=== PATIENT | male | born 1940 | race Caucasian/White ===

== ENCOUNTER 2019-04-29 09:48 | Day surgery (SDC) | payer MEDICARE ==
[~2019-04-29] VITALS: Ht 180.3 cm; Wt 76.7 kg
[2019-04-29 10:30] VITALS: BP 148/90; PULSE 68; TEMP 97.8
[2019-04-29] MEDS ORDERED: ZESTRIL 20MG TA20 MG PO (10:43)
[2019-04-29] MEDS ORDERED: DUTOPROL 12.5 M1 TE1 PO (10:46)
[2019-04-29 11:50] VITALS: BP 131/75; PULSE 68; TEMP 97.2
--- NOTE | 2019-04-29 11:50 | NUR ---
TO BAY 4 PER OWN WILL STEADY GAIT. ALERT ORIENTED X3,TALKING WITH STAFF AND SON. AMBULATED TO RECLINER WITH ASSIST AND TOLERATED WELL. DR CONNELL TALKED WITH SON PRIOR TO PATIENT RETURNING TO .
[2019-04-29 12:05] VITALS: BP 124/88; PULSE 80
--- NOTE | 2019-04-29 12:05 | NUR ---
RECEIVED COFFEE AND TOLERATED WELL.
--- NOTE | 2019-04-29 12:25 | NUR ---
RECEIVED COFFEE AND DRANK 100% RECEIVED DISCHARGE INSTRUCTIONS AND VERBALIZED UNDERSTANDING. DISCONTINUED IV AND INT- CATHETER INTACT
--- NOTE | 2019-04-29 12:35 | NUR ---
DISCHARGED PER WC BY NURSING STAFF TO PRIVATE CAR IN CARE OF SONROBERT.
== END 2019-04-29 12:54 | disposition home or self-care (01) ==
LOC: SDCO 09:48
DX: Z12.11 Encounter for screening for malignant neoplasm of colon (principal); I10 Essential (primary) hypertension; A69.20 Lyme disease, unspecified; Z86.010 Personal history of colon polyps; Z90.89 Acquired absence of other organs; Z87.891 Personal history of nicotine dependence; Z85.118 Personal history of other malignant neoplasm of bronchus and lung
CPT/HCPCS: J2704; J7030

== ENCOUNTER 2020-02-22 11:33 | Inpatient (IN) | payer MEDICARE ==
[~2020-02-22] VITALS: Ht 177.8 cm; Wt 78.9 kg
[2020-02-22] VITALS (330 sets, daily range): BP systolic 95–123; BP diastolic 52–70; PULSE 42–84; TEMP 98.7–100.3; O2SAT 78–100
[~2020-02-22 11:33] MED LIST: DUTOPROL 12.5 M1 TE1 PO; ZESTRIL 20MG TA20 MG PO
[2020-02-22] MEDS ORDERED: LIPITOR 40MG TA40 MG PO (12:03)
[2020-02-22] MEDS ORDERED: TOPROL XL 50MG50 MG PO (12:04)
[2020-02-22 12:30] LABS: BASO % 0.2 % (0.0-2.0); EOS # 0.1 (0.0-0.7); EOS % 0.9 % (0-4.0); GRAN # 9.9 (1.4-6.5); GRAN % 73.9 % (42.2-75.2); HEMATOCRIT 41.4 % (42.0-52.0); LYMPH # 1.9 (1.2-3.4); LYMPH % 13.7 % (20.0-51.0); MEAN CELL VOLUME 93 fl (80.0-100.0); MEAN CORPUSCULAR HEMOGLOBIN 31 pg (27.0-31.0); MEAN CORPUSCULAR HGB CONC 34 g/dl (33.0-37.0); MONO # 1.4 (0.1-0.6); MONO % 10.7 % (1.7-9.3); PLATELET COUNT 198 K/mm3 (130-400); RED BLOOD COUNT 4.46 M/mm3 (4.20-5.60); REDCELL DISTRIBUTION WIDTH-CV 12.6 % (11.5-14.5)
[2020-02-22 12:34] LABS: PROTHROMBIN TIME 10.9 SECONDS (9.7-12.8)
[2020-02-22 12:36] LABS: PARTIAL THROMBOPLASTIN TIME 27.7 SECONDS (26.0-37.0)
[2020-02-22 12:39] LABS: ALBUMIN 4.4 gm/dL (3.5-5.0); BILIRUBIN,TOTAL 0.8 mg/dL (0.0-1.0); CALCIUM 9.3 mg/dL (8.4-10.2); CREATININE, serum 1.41 (0.66-1.25); MAGNESIUM 2.4 mg/dL (1.6-2.3); POTASSIUM 4.9 mmol/L (3.4-5.0); TOTAL PROTEIN 7.3 gm/dL (6.4-8.2)
[2020-02-22 13:02] LABS: TROPONIN-I 0.23 ng/mL (0.000-0.035)
[2020-02-23] VITALS (762 sets, daily range): BP systolic 105–147; BP diastolic 50–90; PULSE 37–79; TEMP 97.8–98.3; O2SAT 59–99
[2020-02-23 05:54] LABS: HEMATOCRIT 40.5 % (42.0-52.0); HEMOGLOBIN 13.5 g/dl (13.5-18.0); MEAN CELL VOLUME 94 fl (80.0-100.0); MEAN CORPUSCULAR HEMOGLOBIN 32 pg (27.0-31.0); MEAN CORPUSCULAR HGB CONC 33 g/dl (33.0-37.0); MEAN PLATELET VOLUME 10.9 fl (7.4-10.4); RED BLOOD COUNT 4.29 M/mm3 (4.20-5.60)
[2020-02-23 05:58] LABS: PLATELET COUNT 145 K/mm3 (130-400)
[2020-02-23 06:14] LABS: BAND 2 % (0-10); LYMPHOCYTE 19 % (20.0-51.0); NEUTROPHILS 68 % (42.0-75.2); PLATELET ESTIMATE NORMAL (NORMAL)
[2020-02-23 07:10] LABS: ALBUMIN 3.7 gm/dL (3.5-5.0); BILIRUBIN,TOTAL 0.9 mg/dL (0.0-1.0); CHOLESTEROL RISK RATIO 5.1; CREATININE, serum 1.34 (0.66-1.25); POTASSIUM 4.6 mmol/L (3.4-5.0); TOTAL PROTEIN 6.3 gm/dL (6.4-8.2)
[2020-02-24] VITALS (749 sets, daily range): BP systolic 113–145; BP diastolic 7–90; PULSE 46–64; TEMP 98–98.4; O2SAT 68–100
[2020-02-24 05:59] LABS: CREATININE, serum 1.18 (0.66-1.25); POTASSIUM 4.1 mmol/L (3.4-5.0)
[2020-02-24 07:00] LABS: HEMOGLOBIN 12.6 g/dl (13.5-18.0); MEAN CELL VOLUME 90 fl (80.0-100.0); MEAN CORPUSCULAR HEMOGLOBIN 32 pg (27.0-31.0); MEAN CORPUSCULAR HGB CONC 35 g/dl (33.0-37.0); PLATELET COUNT 111 K/mm3 (130-400); REDCELL DISTRIBUTION WIDTH-CV 12.7 % (11.5-14.5)
[2020-02-24 07:53] LABS: HEMATOCRIT 35.9 % (42.0-52.0)
[2020-02-24 07:57] LABS: BAND 4 % (0-10); LYMPHOCYTE 9 % (20.0-51.0); NEUTROPHILS 70 % (42.0-75.2)
[2020-02-24 08:00] LABS: PLATELET ESTIMATE DECREASED (NORMAL)
[2020-02-25] VITALS (1213 sets, daily range): BP systolic 111–144; BP diastolic 49–84; PULSE 48–70; TEMP 97.8–99.4; O2SAT 78–100
[2020-02-25 04:52] LABS: BASO % 0.2 % (0.0-2.0); EOS % 0.2 % (0-4.0); GRAN # 9.9 (1.4-6.5); GRAN % 81.2 % (42.2-75.2); HEMOGLOBIN 11.4 g/dl (13.5-18.0); LYMPH # 0.9 (1.2-3.4); MEAN CELL VOLUME 91 fl (80.0-100.0); MEAN CORPUSCULAR HEMOGLOBIN 31 pg (27.0-31.0); MEAN CORPUSCULAR HGB CONC 34 g/dl (33.0-37.0); MEAN PLATELET VOLUME 11.3 fl (7.4-10.4); MONO # 1.3 (0.1-0.6); MONO % 10.8 % (1.7-9.3); PLATELET COUNT 136 K/mm3 (130-400); RED BLOOD COUNT 3.67 M/mm3 (4.20-5.60); REDCELL DISTRIBUTION WIDTH-CV 12.8 % (11.5-14.5)
[2020-02-25 04:57] LABS: HEMATOCRIT 33.3 % (42.0-52.0)
[2020-02-25 05:02] LABS: CREATININE, serum 1.14 (0.66-1.25); MAGNESIUM 2.3 mg/dL (1.6-2.3); POTASSIUM 3.6 mmol/L (3.4-5.0)
[2020-02-26] VITALS (817 sets, daily range): BP systolic 118–140; BP diastolic 51–90; PULSE 48–62; TEMP 98.1–99.4; O2SAT 70–100
[2020-02-26 05:45] LABS: BASO % 0.2 % (0.0-2.0); EOS # 0.1 (0.0-0.7); EOS % 1.3 % (0-4.0); GRAN # 7.7 (1.4-6.5); GRAN % 78.8 % (42.2-75.2); HEMOGLOBIN 11.9 g/dl (13.5-18.0); LYMPH # 0.9 (1.2-3.4); LYMPH % 9.5 % (20.0-51.0); MEAN CELL VOLUME 91 fl (80.0-100.0); MEAN CORPUSCULAR HEMOGLOBIN 31 pg (27.0-31.0); MEAN CORPUSCULAR HGB CONC 35 g/dl (33.0-37.0); MEAN PLATELET VOLUME 10.8 fl (7.4-10.4); MONO # 0.9 (0.1-0.6); MONO % 9.6 % (1.7-9.3); PLATELET COUNT 153 K/mm3 (130-400); REDCELL DISTRIBUTION WIDTH-CV 12.8 % (11.5-14.5)
[2020-02-26 05:58] LABS: CALCIUM 7.9 mg/dL (8.4-10.2); CREATININE, serum 1.1 (0.66-1.25); POTASSIUM 3.9 mmol/L (3.4-5.0)
[2020-02-26 05:59] LABS: HEMATOCRIT 34.5 % (42.0-52.0)
[2020-02-27] VITALS (1068 sets, daily range): BP systolic 110–147; BP diastolic 41–86; PULSE 40–98; TEMP 98–98.5; O2SAT 74–98
[2020-02-27 05:09] LABS: BASO % 0.3 % (0.0-2.0); EOS # 0.2 (0.0-0.7); EOS % 2.1 % (0-4.0); GRAN # 7.5 (1.4-6.5); GRAN % 79.4 % (42.2-75.2); HEMOGLOBIN 11.5 g/dl (13.5-18.0); LYMPH # 0.8 (1.2-3.4); LYMPH % 8.2 % (20.0-51.0); MEAN CELL VOLUME 91 fl (80.0-100.0); MEAN CORPUSCULAR HEMOGLOBIN 31 pg (27.0-31.0); MEAN CORPUSCULAR HGB CONC 34 g/dl (33.0-37.0); MEAN PLATELET VOLUME 10.2 fl (7.4-10.4); MONO # 0.9 (0.1-0.6); MONO % 9.6 % (1.7-9.3); PLATELET COUNT 180 K/mm3 (130-400); RED BLOOD COUNT 3.71 M/mm3 (4.20-5.60); REDCELL DISTRIBUTION WIDTH-CV 12.4 % (11.5-14.5)
[2020-02-27 05:11] LABS: HEMATOCRIT 33.6 % (42.0-52.0)
[2020-02-27 05:19] LABS: CALCIUM 7.9 mg/dL (8.4-10.2); CREATININE, serum 1.06 (0.66-1.25); POTASSIUM 3.4 mmol/L (3.4-5.0)
[2020-02-27 18:39] LABS: HEMOGLOBIN 12.1 g/dl (13.5-18.0); MEAN CELL VOLUME 91 fl (80.0-100.0); MEAN CORPUSCULAR HEMOGLOBIN 31 pg (27.0-31.0); MEAN CORPUSCULAR HGB CONC 34 g/dl (33.0-37.0); MEAN PLATELET VOLUME 10.5 fl (7.4-10.4); PLATELET COUNT 213 K/mm3 (130-400); RED BLOOD COUNT 3.96 M/mm3 (4.20-5.60); REDCELL DISTRIBUTION WIDTH-CV 12.4 % (11.5-14.5)
[2020-02-27 18:42] LABS: HEMATOCRIT 36.1 % (42.0-52.0)
[2020-02-27 18:49] LABS: INR 1.1 (0.8-3.0); PROTHROMBIN TIME 12.6 SECONDS (9.7-12.8)
[2020-02-27 18:51] LABS: PARTIAL THROMBOPLASTIN TIME 27.5 SECONDS (26.0-37.0)
[2020-02-27 19:11] LABS: CALCIUM 8.5 mg/dL (8.4-10.2); CREATININE, serum 0.96 (0.66-1.25)
[2020-02-28] VITALS (953 sets, daily range): BP systolic 95–146; BP diastolic 40–100; PULSE 38–63; TEMP 97.6–98.4; O2SAT 76–100
[2020-02-28 05:26] LABS: BASO % 0.2 % (0.0-2.0); EOS # 0.2 (0.0-0.7); EOS % 2.6 % (0-4.0); GRAN % 76.1 % (42.2-75.2); HEMOGLOBIN 11.2 g/dl (13.5-18.0); LYMPH # 0.9 (1.2-3.4); LYMPH % 9.6 % (20.0-51.0); MEAN CELL VOLUME 93 fl (80.0-100.0); MEAN CORPUSCULAR HEMOGLOBIN 32 pg (27.0-31.0); MEAN CORPUSCULAR HGB CONC 34 g/dl (33.0-37.0); MEAN PLATELET VOLUME 10.5 fl (7.4-10.4); PLATELET COUNT 196 K/mm3 (130-400); RED BLOOD COUNT 3.52 M/mm3 (4.20-5.60); REDCELL DISTRIBUTION WIDTH-CV 12.5 % (11.5-14.5)
[2020-02-28 05:28] LABS: HEMATOCRIT 32.6 % (42.0-52.0)
[2020-02-28 06:22] LABS: CALCIUM 8.2 mg/dL (8.4-10.2); CREATININE, serum 1.01 (0.66-1.25); POTASSIUM 4.1 mmol/L (3.4-5.0)
[2020-02-29] VITALS (72 sets, daily range): BP systolic 110–146; BP diastolic 38–80; PULSE 52–78; TEMP 97.8–98.6; O2SAT 78–98
[2020-02-29 11:29] LABS: BASO % 0.4 % (0.0-2.0); EOS # 0.2 (0.0-0.7); EOS % 1.9 % (0-4.0); GRAN # 6.1 (1.4-6.5); GRAN % 77.4 % (42.2-75.2); HEMOGLOBIN 11.3 g/dl (13.5-18.0); INR 1.2 (0.8-3.0); LYMPH # 0.7 (1.2-3.4); LYMPH % 9.1 % (20.0-51.0); MEAN CELL VOLUME 92 fl (80.0-100.0); MEAN CORPUSCULAR HEMOGLOBIN 31 pg (27.0-31.0); MEAN CORPUSCULAR HGB CONC 33 g/dl (33.0-37.0); MEAN PLATELET VOLUME 10.2 fl (7.4-10.4); MONO # 0.8 (0.1-0.6); MONO % 10.6 % (1.7-9.3); PLATELET COUNT 256 K/mm3 (130-400); PROTHROMBIN TIME 13.3 SECONDS (9.7-12.8); RED BLOOD COUNT 3.68 M/mm3 (4.20-5.60); REDCELL DISTRIBUTION WIDTH-CV 12.3 % (11.5-14.5)
[2020-02-29 11:30] LABS: HEMATOCRIT 33.8 % (42.0-52.0)
[2020-02-29 11:34] LABS: CALCIUM 8.3 mg/dL (8.4-10.2); CREATININE, serum 0.97 (0.66-1.25); POTASSIUM 4.3 mmol/L (3.4-5.0)
[2020-02-29] MEDS ORDERED: BRILINTA90 MG PO (11:46)
[2020-02-29] MEDS ORDERED: PROAIR HFA0.09 MG/AC IH (11:46)
[2020-02-29] MEDS ORDERED: NITROSTAT0.4 MG/TAB SL (11:47)
[2020-02-29] MEDS ORDERED: TYLENOL 325MG325 MG PO (11:47)
[2020-02-29] MEDS ORDERED: ASPIRIN 81M81 MG/TA2 PO (11:47)
[2020-02-29] MEDS ORDERED: ELIQUIS 5MG PO (11:49)
[2020-02-29] MEDS ORDERED: ZITHROMAX500 M2 PO (13:45)
[2020-02-29] MEDS ORDERED: OMNICEF 300MG300 MG PO (13:45)
== END 2020-02-29 14:45 | disposition home health service (06) | DRG 242 ==
LOC: COL.ER 11:33 → ICU 12:18
PROVIDERS: Family Medicine; Internal Medicine Interventional Cardiology; Physician Assistant; ADMIT Student in an Organized Health Care Education/Training Program
PROC: 5A1223Z Performance of Cardiac Pacing, Continuous (ICD-10-PCS; 2020-02-22)
PROC: 027034Z Dilation of Coronary Artery, One Artery with Drug-eluting Intraluminal Device, Percutaneous Approach (ICD-10-PCS; 2020-02-23)
PROC: B2111ZZ Fluoroscopy of Multiple Coronary Arteries using Low Osmolar Contrast (ICD-10-PCS; 2020-02-23)
PROC: 4A023N7 Measurement of Cardiac Sampling and Pressure, Left Heart, Percutaneous Approach (ICD-10-PCS; 2020-02-23)
PROC: 5A2204Z Restoration of Cardiac Rhythm, Single (ICD-10-PCS; 2020-02-25)
PROC: 0JH606Z Insertion of Pacemaker, Dual Chamber into Chest Subcutaneous Tissue and Fascia, Open Approach (ICD-10-PCS; principal; 2020-02-29)
PROC: 02H63JZ Insertion of Pacemaker Lead into Right Atrium, Percutaneous Approach (ICD-10-PCS; 2020-02-29)
PROC: 02HK3JZ Insertion of Pacemaker Lead into Right Ventricle, Percutaneous Approach (ICD-10-PCS; 2020-02-29)
DX: I44.2 Atrioventricular block, complete (principal); I21.4 Non-ST elevation (NSTEMI) myocardial infarction; J96.01 Acute respiratory failure with hypoxia; J18.9 Pneumonia, unspecified organism; N17.9 Acute kidney failure, unspecified; F05 Delirium due to known physiological condition; I48.91 Unspecified atrial fibrillation; Z20.828 Contact with and (suspected) exposure to other viral communicable diseases; I25.10 Atherosclerotic heart disease of native coronary artery without angina pectoris; D69.6 Thrombocytopenia, unspecified; E78.5 Hyperlipidemia, unspecified; I10 Essential (primary) hypertension; I95.9 Hypotension, unspecified; Z87.891 Personal history of nicotine dependence
CPT/HCPCS: 99233-AI; 99239; C9600; G0378; J0456; J0690; J0696; J1200; J1644; J1650; J1940; J2250; J2704; J3010; J7030; J7040; J7050; Q9967

== ENCOUNTER 2020-04-27 06:30 | Day surgery (SDC) | payer MEDICARE ==
[~2020-04-27] VITALS: Ht 177.8 cm; Wt 78.0 kg
[~2020-04-27 06:30] MED LIST changes: +ASPIRIN 81M81 MG/TA2 PO; +BRILINTA90 MG PO; +ELIQUIS 5MG PO; +LIPITOR 40MG TA40 MG PO; +NITROSTAT0.4 MG/TAB SL; +OMNICEF 300MG300 MG PO; +PROAIR HFA0.09 MG/AC IH; +TOPROL XL 50MG50 MG PO; +TYLENOL 325MG325 MG PO; +ZITHROMAX500 M2 PO
[2020-04-27 07:49] VITALS: BP 151/84; PULSE 68; TEMP 98.1
[2020-04-27] MEDS ORDERED: TOPROL XL 25MG25 MG PO (07:58)
[2020-04-27] MEDS ORDERED: PACERONE200 MG PO (07:58)
[2020-04-27] MEDS ORDERED: PLAVIX 75MG TAB75 MG PO (07:59)
[2020-04-27 08:38] LABS: POTASSIUM 4.9 mmol/L (3.4-5.0)
[2020-04-27 08:50] LABS: INR 1.3 (0.8-3.0); PROTHROMBIN TIME 14.2 SECONDS (9.7-12.8)
--- NOTE | 2020-04-27 09:10 | NUR ---
DR SUMNER HERE WITH DOUBLING MACHINE OPERATOR, PACEMAKER DEVICE USED BY DOUBLING MACHINE OPERATOR, PT IS IN SINUS RHYTHM, PROCEDURE WAS CANCELLED BY DR SUMNER,
[2020-04-27 09:13] LABS: THYROID STIMULATING HORMONE 2.99 uIU/mL (0.465-4.680)
--- NOTE | 2020-04-27 09:30 | NUR ---
IV D'CD INTACT, PT IS UP IN ROOM DRESSED, NEW APPT CARD GIVEN TO PT FOR AT 2:15, ALSO PRINT OUT OF MEDS THAT WAS UPDATED WHEN PT BROUGHT IN PILL BOTTLES GIVEN, INSTRUCTED PT TO BRING MED LIST AND PILL BOTTLES TO APPT NEXT WEEK. CALLED SON FOR RIDE, SPOKE WITH SON ON APPT AND PT TO BRING MEDS WITH HIM TO APPT. PT DISCHARGED AMB. TO LOBBY TO WAIT FOR SON.
== END 2020-04-27 09:40 | disposition home or self-care (01) ==
LOC: COL.CAR 06:30
PROVIDERS: Internal Medicine Interventional Cardiology
DX: I48.0 Paroxysmal atrial fibrillation (principal); I25.10 Atherosclerotic heart disease of native coronary artery without angina pectoris; Z79.82 Long term (current) use of aspirin; I10 Essential (primary) hypertension; Z95.0 Presence of cardiac pacemaker
CPT/HCPCS: J2704; J7030